=== PATIENT | male | born 1955 | race Caucasian/White ===

== ENCOUNTER 2018-03-22 07:48 | Day surgery (SDC) | payer OTHER ==
[2018-03-22] MEDS ORDERED: MIDAZOLAM 1 MG/ML 2 ML INJ (09:16)
[2018-03-22] MEDS ORDERED: PROPOFOL 40 ML (09:16)
== END 2018-03-22 11:51 | disposition home or self-care (01) ==
LOC: GIL 07:48
DX: K92.1 Melena (principal); D12.5 Benign neoplasm of sigmoid colon; K64.8 Other hemorrhoids; I10 Essential (primary) hypertension; E78.5 Hyperlipidemia, unspecified; G20 Parkinson's disease; N40.0 Benign prostatic hyperplasia without lower urinary tract symptoms
CPT/HCPCS: 45380; 88305

== ENCOUNTER 2018-10-07 14:17 | Inpatient (IN) | payer OTHER ==
[2018-10-07] MEDS ORDERED: THROMBIN 5000 UNIT VIAL (15:31)
[2018-10-07] MEDS ORDERED: HEPARIN 1000 UNITS/ML 10 ML INJ ×2 (15:32)
[2018-10-07] MEDS ORDERED: METOCLOPRAMIDE 10 MG INJ IV (18:00)
[2018-10-07] MEDS ORDERED: FENTAnyl 50 MCG/ML VIAL IV ×2 (18:00)
[2018-10-07] MEDS ORDERED: ALBUTEROL 0.083% (NEB) 2.5 MG/3 ML AMP HHN (18:00)
[2018-10-07] MEDS ORDERED: DIPHENHYDRAMINE 50 MG INJ IV (18:00)
[2018-10-07] MEDS ORDERED: HYDROmorphONE 1 MG/5 ML IV SYRINGE IV ×3 (18:00)
[2018-10-07] MEDS ORDERED: MEPERIDINE 25 MG INJ IV (18:00)
[2018-10-07] MEDS ORDERED: FENTAnyl 50 MCG/ML VIAL ×2 (18:07→20:34)
[2018-10-07] MEDS ORDERED: LABETALOL HCL 20MG INJ (18:32)
[2018-10-07] MEDS: CEFAZOLIN 1 GM INJ (19:02)
[2018-10-07] MEDS ORDERED: hydrALAzine 20 MG INJ (19:07)
[2018-10-07] MEDS ORDERED: LIDOCAINE 100 MG SYRINGE (19:12)
[2018-10-07] MEDS ORDERED: SUCCINYLCHOLINE CHLORIDE 100 MG/5 ML SYG IV (19:12)
[2018-10-07] MEDS ORDERED: ROCURONIUM 50 MG INJ (19:12)
[2018-10-07] MEDS ORDERED: PROPOFOL 20 ML (19:12)
[2018-10-07] MEDS ORDERED: CEFAZOLIN 1 GM INJ (19:12)
[2018-10-07] MEDS: THROMBIN 5000 UNIT VIAL TOP ×2 (19:19→19:20)
[2018-10-07] MEDS: GELATIN SIZE 100 SPONGE (19:19)
[2018-10-07] MEDS ORDERED: NALOXONE (0.4 MG/ML) INJ IV (19:30)
[2018-10-07] MEDS ORDERED: NACL 0.9% 3 ML SYG IV (19:30)
[2018-10-07] MEDS ORDERED: SUGAMMADEX SODIUM 200 MG/2 ML VIAL IV (20:31)
[2018-10-07] MEDS ORDERED: BACITRACIN/POLYMYXIN 28.35 GM OINT TOP (20:51)
[2018-10-07] MEDS: HYDROmorphONE 1 MG/ML SYG IV (21:36)
[2018-10-07] MEDS: ONDANSETRON 4 MG INJ IV (21:43)
[2018-10-07] MEDS: HYDROmorphONE 0.2 MG/ML PCA IV (22:04)
[2018-10-07] MEDS: NS + KCL 20 MEQ 1,000 ML IV (23:15)
[2018-10-07] MEDS: CEFAZOLIN 2 GM/50 ML (PMX) 50 ML IVPB (23:39)
[2018-10-08] MEDS: NS + KCL 20 MEQ 1,000 ML IV ×2 (04:53→16:10)
[2018-10-08 05:22] LABS: HEMATOCRIT 41.6 % (42.0-52.0); HEMOGLOBIN 14.1 g/dl (14.0-18.0)
[2018-10-08 05:58] LABS: ANION GAP 11 (5-13); BLOOD UREA NITROGEN 12 mg/dl (7-20); CALCIUM 8.9 mg/dl (8.4-10.2); CARBON DIOXIDE 22 mmol/L (21-31); CHLORIDE 106 mmol/L (97-110); CREATININE 0.68 mg/dl (0.61-1.24); Estimated GFR > 60 mL/min (>60); GLUCOSE 134 mg/dl (70-220); POTASSIUM 3.9 mmol/L (3.5-5.1); SODIUM 139 mmol/L (135-144)
[2018-10-08] MEDS: CEFAZOLIN 2 GM/50 ML (PMX) 50 ML IVPB ×3 (06:13→21:14)
[2018-10-08] MEDS ORDERED: SUCCINYLCHOLINE CHLORIDE 100 MG/5 ML SYG IV (07:00)
[2018-10-08] MEDS: HYDROmorphONE 0.2 MG/ML PCA IV (08:56)
[2018-10-08] MEDS ORDERED: GELATIN SIZE 100 SPONGE (11:26)
[2018-10-08] MEDS ORDERED: CEFAZOLIN 1 GM INJ ×2 (11:27→12:25)
[2018-10-08] MEDS ORDERED: PROPOFOL 20 ML (11:37)
[2018-10-08] MEDS ORDERED: LIDOCAINE 2% (SDV) 5 ML INJ (11:37)
[2018-10-08] MEDS ORDERED: ROCURONIUM 50 MG INJ (11:37)
[2018-10-08] MEDS ORDERED: MIDAZOLAM 1 MG/ML 2 ML INJ (11:38)
[2018-10-08] MEDS: RANITIDINE 150 MG TAB PO ×2 (12:00→21:00)
[2018-10-08] MEDS ORDERED: ROPIVACAINE 0.5 % 30 ML VIAL (12:15)
[2018-10-08] MEDS ORDERED: PHENYLephrine (100 MCG/ML) 5ML SYG (12:22)
[2018-10-08] MEDS ORDERED: DEXAMETHASONE 4 MG/ML 5 ML INJ (12:25)
[2018-10-08] MEDS: BACLOFEN 10 MG TAB PO (12:46)
[2018-10-08] MEDS: BRIMONIDINE 0.15% 5 ML OPH BOTH EYES ×2 (12:46→20:40)
[2018-10-08] MEDS: TIMOLOL 0.25% 5 ML OPH BOTH EYES ×2 (12:46→20:40)
[2018-10-08] MEDS: ROPIVACAINE 0.5 % 30 ML VIAL (12:55)
[2018-10-08] MEDS: POLYMYXIN/BACITRACIN 1L IRRIG IRR (12:55)
[2018-10-08] MEDS ORDERED: NON-FORMULARY/PATIENT OWN MED (Carbidopa/Levodopa (Carbidopa-Levo 25-100 Mg Odt) 1 TAB) PO (13:00)
[2018-10-08] MEDS: CARBIDOPA/LEVODOPA (25/100) TAB PO ×2 (13:00→21:00)
[2018-10-08] MEDS ORDERED: GLYCOPYRROLATE 0.4 MG INJ (13:28)
[2018-10-08] MEDS ORDERED: NEOSTIGMINE 3 MG/3 ML SYRINGE (13:28)
[2018-10-08] MEDS ORDERED: HYDROmorphONE 0.5 MG/0.5 ML SYG IV ×3 (14:00)
[2018-10-08] MEDS ORDERED: LABETALOL HCL 20MG INJ IV (14:00)
[2018-10-08] MEDS ORDERED: hydrALAzine 20 MG INJ IV (14:00)
[2018-10-08] MEDS: LATANOPROST 0.005% 2.5 ML OPH BOTH EYES (20:40)
[2018-10-09] MEDS: NS + KCL 20 MEQ 1,000 ML IV ×3 (01:30→15:00)
[2018-10-09] MEDS: HYDROmorphONE 0.2 MG/ML PCA IV (03:19)
[2018-10-09 04:51] LABS: ADD MAN DIFF? NO
[2018-10-09 04:56] LABS: ABNORMAL IP MESSAGE 1; BASOPHILS % 0.1 % (0.0-2.0); HEMATOCRIT 35.9 % (42.0-52.0); HEMOGLOBIN 12.2 g/dl (14.0-18.0); LYMPHOCYTES % 5.4 % (15.0-51.0); MEAN CORPUSCULAR VOLUME 91.3 fl (82.0-101.0); MEAN PLATELET VOLUME 10.3 fl (7.4-10.4); MONOCYTE # 1.6 10^3/ul (0.3-0.9); NEUTROPHIL # 15.1 10^3/ul (1.6-7.5); NEUTROPHILS % 84.9 % (39.0-77.0); PLATELET COUNT 199 10^3/UL (140-415); POSITIVE DIFF @See below; RED BLOOD COUNT 3.93 10^6/ul (4.70-6.10); RED CELL DISTRIBUTION WIDTH 11.8 % (11.5-14.5)
[2018-10-09 04:56] LABS: WHITE BLOOD COUNT 17.8 10^3/ul (4.8-10.8)
[2018-10-09 05:38] LABS: ANION GAP 7 (5-13); BLOOD UREA NITROGEN 12 mg/dl (7-20); CARBON DIOXIDE 26 mmol/L (21-31); CHLORIDE 104 mmol/L (97-110); CREATININE 0.59 mg/dl (0.61-1.24); Estimated GFR > 60 mL/min (>60); GLUCOSE 135 mg/dl (70-220); POTASSIUM 3.9 mmol/L (3.5-5.1); SODIUM 137 mmol/L (135-144)
[2018-10-09] MEDS: CEFAZOLIN 2 GM/50 ML (PMX) 50 ML IVPB ×3 (05:47→21:25)
[2018-10-09] MEDS: ADENOSINE 6 MG INJ IV ×2 (07:39→07:43)
[2018-10-09] MEDS ORDERED: DILTIAZEM 25 MG INJ (07:43)
[2018-10-09 08:01] LABS: MAGNESIUM 1.9 mg/dl (1.7-2.5)
[2018-10-09] MEDS: DILTIAZEM-D5W 125MG/125ML DRIP 125 ML IV (08:23)
[2018-10-09] MEDS: MAGNESIUM HYDROXIDE 30ML CUP PO ×2 (09:07→22:50)
[2018-10-09] MEDS: ONDANSETRON 4 MG INJ IV ×2 (09:08→20:22)
[2018-10-09] MEDS: BRIMONIDINE 0.15% 5 ML OPH BOTH EYES ×2 (09:48→20:27)
[2018-10-09] MEDS: CARBIDOPA/LEVODOPA (25/100) TAB PO ×3 (09:48→20:27)
[2018-10-09] MEDS: RANITIDINE 150 MG TAB PO ×2 (09:48→20:27)
[2018-10-09] MEDS: TIMOLOL 0.25% 5 ML OPH BOTH EYES ×2 (09:48→20:27)
[2018-10-09] MEDS: BACLOFEN 10 MG TAB PO (09:48)
[2018-10-09] MEDS: INFLUENZA VIRUS VACCINE 0.5 ML (DISPENSING) IM* (10:16)
[2018-10-09] MEDS: METOPROLOL 25 MG TAB PO (20:27)
[2018-10-09] MEDS: LATANOPROST 0.005% 2.5 ML OPH BOTH EYES (20:32)
[2018-10-10] MEDS: NS + KCL 20 MEQ 1,000 ML IV (01:57)
[2018-10-10 04:55] LABS: ADD MAN DIFF? NO
[2018-10-10 04:58] LABS: WHITE BLOOD COUNT 13.8 10^3/ul (4.8-10.8)
[2018-10-10 04:58] LABS: BASOPHILS % 0.1 % (0.0-2.0); HEMATOCRIT 31.3 % (42.0-52.0); HEMOGLOBIN 10.7 g/dl (14.0-18.0); LYMPHOCYTES # 1.1 10^3/ul (0.8-2.9); MEAN CORPUSCULAR HEMOGLOBIN 31.6 pg (29.0-33.0); MEAN CORPUSCULAR HGB CONC 34.2 g/dl (32.0-37.0); MEAN CORPUSCULAR VOLUME 92.3 fl (82.0-101.0); MEAN PLATELET VOLUME 10.6 fl (7.4-10.4); MONOCYTE # 1.1 10^3/ul (0.3-0.9); MONOCYTES % 7.6 % (0.0-11.0); NEUTROPHIL # 11.5 10^3/ul (1.6-7.5); NEUTROPHILS % 83.6 % (39.0-77.0); PLATELET COUNT 166 10^3/UL (140-415); RED BLOOD COUNT 3.39 10^6/ul (4.70-6.10); RED CELL DISTRIBUTION WIDTH 11.8 % (11.5-14.5)
[2018-10-10 05:30] LABS: ANION GAP 2 (5-13); BLOOD UREA NITROGEN 9 mg/dl (7-20); CARBON DIOXIDE 22 mmol/L (21-31); CHLORIDE 113 mmol/L (97-110); CREATININE 0.51 mg/dl (0.61-1.24); Estimated GFR > 60 mL/min (>60); GLUCOSE 107 mg/dl (70-220); POTASSIUM 5.5 mmol/L (3.5-5.1); SODIUM 137 mmol/L (135-144)
[2018-10-10] MEDS: CEFAZOLIN 2 GM/50 ML (PMX) 50 ML IVPB ×3 (05:46→21:10)
[2018-10-10] MEDS: MAGNESIUM HYDROXIDE 30ML CUP PO ×2 (05:46→20:05)
[2018-10-10] MEDS: HYDROmorphONE 0.2 MG/ML PCA IV (07:19)
[2018-10-10] MEDS ORDERED: SODIUM POLYSTYRENE 15 GM KIT (POWDER + SORBITOL) PO (08:00)
[2018-10-10] MEDS: TIMOLOL 0.25% 5 ML OPH BOTH EYES ×2 (08:33→21:15)
[2018-10-10] MEDS: RANITIDINE 150 MG TAB PO ×2 (08:33→21:08)
[2018-10-10] MEDS: METOPROLOL 25 MG TAB PO ×2 (08:33→21:16)
[2018-10-10] MEDS: BACLOFEN 10 MG TAB PO (08:33)
[2018-10-10] MEDS: CARBIDOPA/LEVODOPA (25/100) TAB PO ×3 (08:33→21:08)
[2018-10-10] MEDS: BRIMONIDINE 0.15% 5 ML OPH BOTH EYES ×2 (08:34→21:13)
[2018-10-10] MEDS ORDERED: METOPROLOL 5 MG INJ IV (15:30)
[2018-10-10 15:31] LABS: POTASSIUM 3.3 mmol/L (3.5-5.1)
[2018-10-10] MEDS: POLYETHYLENE GLYCOL 17 GM PACKET PO (21:08)
[2018-10-10] MEDS: LATANOPROST 0.005% 2.5 ML OPH BOTH EYES (21:08)
[2018-10-10] MEDS: DOCUSATE SODIUM 100 MG CAP PO (21:08)
[2018-10-10] MEDS: HYDROmorphONE 1 MG/ML SYG IV (22:25)
[2018-10-11 05:26] LABS: ADD MAN DIFF? NO
[2018-10-11 05:36] LABS: BASOPHILS % 0.2 % (0.0-2.0); EOSINOPHILS % 0.2 % (0.0-7.0); HEMATOCRIT 33.4 % (42.0-52.0); HEMOGLOBIN 11.4 g/dl (14.0-18.0); LYMPHOCYTES # 1.2 10^3/ul (0.8-2.9); LYMPHOCYTES % 12.3 % (15.0-51.0); MEAN CORPUSCULAR HEMOGLOBIN 31.5 pg (29.0-33.0); MEAN CORPUSCULAR HGB CONC 34.1 g/dl (32.0-37.0); MEAN CORPUSCULAR VOLUME 92.3 fl (82.0-101.0); MEAN PLATELET VOLUME 10.5 fl (7.4-10.4); MONOCYTES % 10.6 % (0.0-11.0); NEUTROPHIL # 7.4 10^3/ul (1.6-7.5); NEUTROPHILS % 76.2 % (39.0-77.0); PLATELET COUNT 178 10^3/UL (140-415); RED BLOOD COUNT 3.62 10^6/ul (4.70-6.10); RED CELL DISTRIBUTION WIDTH 11.7 % (11.5-14.5)
[2018-10-11 05:36] LABS: WHITE BLOOD COUNT 9.8 10^3/ul (4.8-10.8)
[2018-10-11 06:12] LABS: ANION GAP 6 (5-13); BLOOD UREA NITROGEN 11 mg/dl (7-20); CALCIUM 8.2 mg/dl (8.4-10.2); CARBON DIOXIDE 28 mmol/L (21-31); CHLORIDE 101 mmol/L (97-110); CREATININE 0.65 mg/dl (0.61-1.24); Estimated GFR > 60 mL/min (>60); GLUCOSE 107 mg/dl (70-220); POTASSIUM 3.3 mmol/L (3.5-5.1); SODIUM 135 mmol/L (135-144)
[2018-10-11] MEDS: METOPROLOL 25 MG TAB PO ×3 (06:12→22:01)
[2018-10-11] MEDS: HYDROmorphONE 1 MG/ML SYG IV ×3 (06:13→22:04)
[2018-10-11] MEDS: TIMOLOL 0.25% 5 ML OPH BOTH EYES ×2 (09:19→20:20)
[2018-10-11] MEDS: BACLOFEN 10 MG TAB PO (09:19)
[2018-10-11] MEDS: DOCUSATE SODIUM 100 MG CAP PO ×2 (09:19→20:20)
[2018-10-11] MEDS: CARBIDOPA/LEVODOPA (25/100) TAB PO ×3 (09:19→20:21)
[2018-10-11] MEDS: RANITIDINE 150 MG TAB PO ×2 (09:19→20:21)
[2018-10-11] MEDS: BRIMONIDINE 0.15% 5 ML OPH BOTH EYES ×2 (09:19→20:20)
[2018-10-11] MEDS: POTASSIUM CHLORIDE (SR) 20 MEQ TAB PO (11:24)
[2018-10-11] MEDS: LATANOPROST 0.005% 2.5 ML OPH BOTH EYES (22:01)
[2018-10-12] MEDS: METOPROLOL 25 MG TAB PO ×3 (06:14→22:10)
[2018-10-12] MEDS: HYDROmorphONE 1 MG/ML SYG IV ×4 (06:16→22:41)
[2018-10-12 06:17] LABS: ADD MAN DIFF? NO
[2018-10-12 06:20] LABS: WHITE BLOOD COUNT 9.7 10^3/ul (4.8-10.8)
[2018-10-12 06:21] LABS: BASOPHILS % 0.3 % (0.0-2.0); EOSINOPHILS # 0.1 10^3/ul (0.0-0.5); EOSINOPHILS % 1.5 % (0.0-7.0); HEMATOCRIT 40.9 % (42.0-52.0); HEMOGLOBIN 13.7 g/dl (14.0-18.0); LYMPHOCYTES # 1.5 10^3/ul (0.8-2.9); LYMPHOCYTES % 15.4 % (15.0-51.0); MEAN CORPUSCULAR HEMOGLOBIN 31.6 pg (29.0-33.0); MEAN CORPUSCULAR HGB CONC 33.5 g/dl (32.0-37.0); MEAN CORPUSCULAR VOLUME 94.2 fl (82.0-101.0); MEAN PLATELET VOLUME 10.2 fl (7.4-10.4); MONOCYTES % 10.5 % (0.0-11.0); PLATELET COUNT 255 10^3/UL (140-415); RED BLOOD COUNT 4.34 10^6/ul (4.70-6.10); RED CELL DISTRIBUTION WIDTH 11.9 % (11.5-14.5)
[2018-10-12 06:52] LABS: ANION GAP 9 (5-13); BLOOD UREA NITROGEN 9 mg/dl (7-20); CALCIUM 8.8 mg/dl (8.4-10.2); CARBON DIOXIDE 27 mmol/L (21-31); CHLORIDE 102 mmol/L (97-110); CREATININE 0.58 mg/dl (0.61-1.24); Estimated GFR > 60 mL/min (>60); GLUCOSE 113 mg/dl (70-220); POTASSIUM 3.6 mmol/L (3.5-5.1); SODIUM 138 mmol/L (135-144)
[2018-10-12 06:53] LABS: MAGNESIUM 2.3 mg/dl (1.7-2.5)
[2018-10-12] MEDS: TIMOLOL 0.25% 5 ML OPH BOTH EYES ×2 (08:08→22:15)
[2018-10-12] MEDS: RANITIDINE 150 MG TAB PO ×2 (08:08→22:10)
[2018-10-12] MEDS: BACLOFEN 10 MG TAB PO (08:08)
[2018-10-12] MEDS: BRIMONIDINE 0.15% 5 ML OPH BOTH EYES ×2 (08:08→22:15)
[2018-10-12] MEDS: DOCUSATE SODIUM 100 MG CAP PO ×2 (08:08→22:09)
[2018-10-12] MEDS: CARBIDOPA/LEVODOPA (25/100) TAB PO ×2 (08:08→13:53)
[2018-10-12] MEDS: LATANOPROST 0.005% 2.5 ML OPH BOTH EYES (22:15)
[2018-10-13] MEDS: CARBIDOPA/LEVODOPA (25/100) TAB PO ×4 (01:07→21:01)
[2018-10-13 05:21] LABS: ADD MAN DIFF? NO
[2018-10-13 05:26] LABS: ANION GAP 8 (5-13); BLOOD UREA NITROGEN 9 mg/dl (7-20); CALCIUM 8.5 mg/dl (8.4-10.2); CARBON DIOXIDE 27 mmol/L (21-31); CHLORIDE 101 mmol/L (97-110); CREATININE 0.54 mg/dl (0.61-1.24); Estimated GFR > 60 mL/min (>60); GLUCOSE 102 mg/dl (70-220); POTASSIUM 3.3 mmol/L (3.5-5.1); SODIUM 136 mmol/L (135-144)
[2018-10-13 05:33] LABS: BASOPHILS % 0.4 % (0.0-2.0); EOSINOPHILS # 0.4 10^3/ul (0.0-0.5); EOSINOPHILS % 4.7 % (0.0-7.0); HEMATOCRIT 34.1 % (42.0-52.0); HEMOGLOBIN 11.6 g/dl (14.0-18.0); LYMPHOCYTES # 1.4 10^3/ul (0.8-2.9); LYMPHOCYTES % 18.8 % (15.0-51.0); MEAN CORPUSCULAR HEMOGLOBIN 31.3 pg (29.0-33.0); MEAN CORPUSCULAR VOLUME 91.9 fl (82.0-101.0); MEAN PLATELET VOLUME 10.3 fl (7.4-10.4); MONOCYTE # 0.9 10^3/ul (0.3-0.9); MONOCYTES % 11.6 % (0.0-11.0); NEUTROPHIL # 4.8 10^3/ul (1.6-7.5); NEUTROPHILS % 64.1 % (39.0-77.0); PLATELET COUNT 245 10^3/UL (140-415); RED BLOOD COUNT 3.71 10^6/ul (4.70-6.10); RED CELL DISTRIBUTION WIDTH 11.8 % (11.5-14.5)
[2018-10-13 05:33] LABS: WHITE BLOOD COUNT 7.4 10^3/ul (4.8-10.8)
[2018-10-13] MEDS: METOPROLOL 25 MG TAB PO ×3 (06:16→22:10)
[2018-10-13] MEDS: TIMOLOL 0.25% 5 ML OPH BOTH EYES ×2 (08:54→21:01)
[2018-10-13] MEDS: DOCUSATE SODIUM 100 MG CAP PO ×2 (08:54→21:00)
[2018-10-13] MEDS: BACLOFEN 10 MG TAB PO (08:54)
[2018-10-13] MEDS: RANITIDINE 150 MG TAB PO ×2 (08:54→21:00)
[2018-10-13] MEDS: BRIMONIDINE 0.15% 5 ML OPH BOTH EYES ×2 (08:55→21:00)
[2018-10-13] MEDS: HYDROmorphONE 1 MG/ML SYG IV ×3 (09:09→21:00)
[2018-10-13] MEDS: POTASSIUM CHLORIDE 20 MEQ POWDER FOR ORAL SOLN PO (14:42)
[2018-10-13] MEDS: LATANOPROST 0.005% 2.5 ML OPH BOTH EYES (21:00)
[2018-10-14] MEDS: HYDROmorphONE 1 MG/ML SYG IV ×2 (01:06→04:49)
[2018-10-14] MEDS: METOPROLOL 25 MG TAB PO ×2 (06:00→13:08)
[2018-10-14] MEDS: CARBIDOPA/LEVODOPA (25/100) TAB PO ×2 (08:55→13:06)
[2018-10-14] MEDS: BACLOFEN 10 MG TAB PO (08:55)
[2018-10-14] MEDS: DOCUSATE SODIUM 100 MG CAP PO (08:55)
[2018-10-14] MEDS: HYDROCODONE/APAP (5/325) TAB PO ×2 (08:55→13:10)
[2018-10-14] MEDS: TIMOLOL 0.25% 5 ML OPH BOTH EYES (08:56)
[2018-10-14] MEDS: BRIMONIDINE 0.15% 5 ML OPH BOTH EYES (08:56)
[2018-10-14] MEDS: RANITIDINE 150 MG TAB PO (08:56)
[2018-10-14] MEDS ORDERED: METOPROLOL 50 MG TAB PO (21:00)
== END 2018-10-14 16:49 | disposition home or self-care (01) | DRG 455 ==
LOC: 6WM 10-10 12:45 → REC 14:17 → MS1 10-12 20:19 → REC 17:53 → ICU 21:16
PROC: 0SG10A0 Fusion of 2 or more Lumbar Vertebral Joints with Interbody Fusion Device, Anterior Approach, Anterior Column, Open Approach (ICD-10-PCS; principal; 2018-10-07 17:00)
PROC: 0SG30A0 Fusion of Lumbosacral Joint with Interbody Fusion Device, Anterior Approach, Anterior Column, Open Approach (ICD-10-PCS; 2018-10-07 17:00)
PROC: 0SB40ZZ Excision of Lumbosacral Disc, Open Approach (ICD-10-PCS; 2018-10-07 17:00)
PROC: 0SB20ZZ Excision of Lumbar Vertebral Disc, Open Approach (ICD-10-PCS; 2018-10-07 17:00)
PROC: 0SG10K1 Fusion of 2 or more Lumbar Vertebral Joints with Nonautologous Tissue Substitute, Posterior Approach, Posterior Column, Open Approach (ICD-10-PCS; 2018-10-07 18:12)
PROC: 0SG30K1 Fusion of Lumbosacral Joint with Nonautologous Tissue Substitute, Posterior Approach, Posterior Column, Open Approach (ICD-10-PCS; 2018-10-07 18:12)
DX: M51.17 Intervertebral disc disorders with radiculopathy, lumbosacral region (principal); I10 Essential (primary) hypertension; E78.5 Hyperlipidemia, unspecified; E11.9 Type 2 diabetes mellitus without complications; I48.0 Paroxysmal atrial fibrillation; G20 Parkinson's disease; Z85.46 Personal history of malignant neoplasm of prostate
CPT/HCPCS: 72100; 72114; 72131; 80048; 83735; 84132; 85014; 85018; 85025; 86850; 86900; 86901; 86920; 87081; 88304; 88311; 90686; 93005; 93306; 97116; 97162; 97530